=== PATIENT | female | born 2000 | race Caucasian/White ===

== ENCOUNTER 2020-04-12 14:11 | Emergency (ER) | payer BC, OTHER ==
[~2020-04-12] VITALS: Ht 165.1 cm; Wt 95.3 kg
[~2020-04-12 14:11] MED LIST: BENADRYL25 MG PO; PEPCID20 MG PO; TRIAMCINOLONE A80 G2 TOP
[2020-04-12] MEDS ORDERED: PREDNISONE 10 M10 M1 PO (15:08)
[2020-04-12] MEDS ORDERED: ACYCLOVIR 800800 MG PO (15:08)
[2020-04-12 15:18] LABS: ABSOLUTE BASOPHILS 0.1 thou/uL (0.0-0.2); ABSOLUTE EOSINOPHILS 0.3 thou/uL (0.0-0.7); ABSOLUTE LYMPHOCYTES 1.7 thou/uL (0.8-5.3); ABSOLUTE MONOCYTES 0.5 thou/uL (0.0-1.2); ABSOLUTE NEUTROPHILS 6.4 thou/uL (1.6-8.1); EOSINOPHILS 2.8 %; HEMATOCRIT 43.4 % (37.0-47.0); HEMOGLOBIN 14.9 gm/dL (12.0-15.0); LYMPHOCYTES 19.2 %; MCH 29.6 pg (26.0-34.0); MCHC 34.2 g/dL (28.0-37.0); MCV 86.6 fL (80.0-100.0); MONOCYTES 5.3 %; NUCLEATED RBCS 0 /100WBC; PLATELET COUNT* 328 thou/uL (150-400); POLYS 71.7 %; RBC 5.02 mil/uL (4.20-5.00); RDW-CV 12.4 % (10.5-14.5)
[2020-04-12 15:37] LABS: CALCIUM 9.5 mg/dL (8.5-10.1); CREATININE 0.7 mg/dL (0.6-1.3); POTASSIUM 4.4 mmol/L (3.5-5.1)
[2020-04-12 15:40] LABS: ALBUMIN 4.4 g/dL (3.4-5.0); TOTAL BILIRUBIN 0.5 mg/dL (<0.1-1.0)
[2020-04-12 16:17] VITALS: BP 148/76
--- NOTE | 2020-04-12 16:17 | EKG ---
[place] [address] ELECTROCARDIOGRAM REPORT Name: BOOM MINOR Room: [facility]#: [id number] Admission: 04/12/20 Attend Phys: Discharge: Date of : 89 Date of Service: 04/12/20 1453 Report #: [id number] THIS REPORT FOR: //name// [facility] ED Test Date: 2020-04-12 Test Time: 14:53:49 Pat Name: BOOM MINOR Department: Room: Gender: [employer] Architect: [place] : 2000 Requested By: Lencho Soares Order Number: [id number] MD: Mika Momin Measurements Intervals Paulina Rate: 67 P: 26 MI: 144 QRS: 53 QRSD: 84 T: 28 QT: 393 QTc: 415 Interpretive Statements Sinus rhythm No previous ECG available for comparison Electronically Signed On 04-12-2020 16:17:49 INSPECTOR CIRCUITRY NEGATIVE by Mika Momin [email or web address] <ELECTRONICALLY SIGNED> By: Mika Momin MD, [facility] 04/12/20 1617 1453 1453 Mika Momin MD, FACC /EPI
== END 2020-04-12 16:18 | disposition home or self-care (01) ==
LOC: M.ERS 14:11
PROVIDERS: Emergency Medicine Emergency Medical Services
DX: G51.0 Bell's palsy (principal); J45.909 Unspecified asthma, uncomplicated